=== PATIENT | male | born 1995 | race American Indian/Alaskan Native ===

== ENCOUNTER 2023-09-29 16:00 | Emergency (ER) | payer OTHER, SELFPAY ==
[2023-09-29 16:03] VITALS: BP 144/82; PULSE 86; RESP 18; TEMP 36.7; O2SAT 96; BMI 34.7
--- NOTE | 2023-09-29 16:22 | ED_ITS ---
HPI - Anxiety General Time Seen by Provider: 16:22 Date Seen: 09/29/23 Chief Complaint: Anxiety Stated Complaint: shaking, anxiety Time Seen by Provider: 09/29/23 16:22 Source: patient, RN notes reviewed and old records reviewed Mode of arrival: ambulatory Limitations: no limitations History of Present Illness HPI narrative: Patient is a very pleasant 28-year-old male with history of ADD, anxiety who comes to the emergency room with multiple worries. Ignacio states that he has had increased hunger over the past 2 weeks that he initially attributed to working out and increased activity. He has been trying hard to eat well and for the past few days the anxiety from this is been through the roof. He does agree that he has cut out pop and sugar in the past few days. When this started 2 weeks ago he thought perhaps he was dealing with some reflux as he has had a lot of burping. He use some Pepcid and this did seem to help some with what he describes as hunger. Because he has been eating healthy he noticed that his belly seemed to be getting bigger and he was not going to the bathroom as often and thus he took some MiraLax. This did seem to help. He also notes that he started stretching before he was going runny and this helped his abdominal discomfort quite a bit. The anxiety that Hudson has been experiencing has been ?through the roof? over the past few days. He initially attributed this to lack of sleep as he had an extended shift on SundaySeptember 25 and noticed that he was very anxious and felt scattered. This continued on September 26. On Sunday the he felt pretty well but then when out to supper with his colleagues. He notes that he did take ibuprofen as he had been experiencing a mild headache and his stomach was growling but he ate okay. When he got home he decided to go for run after eating out and when he got back from a 50 minute walk he felt lightheaded and scatter brains. He states this eventually subsided after drinking water. Unfortunately this morning he awoke with nausea and shaking. He did have an episode of nonbloody diarrhea. Note his last dose of MiraLax was earlier in the week. He agrees that sometimes it does occasionally her to urinate. He has not had cough cold or congestion. He states that he did go out to lunch today and while he was in the restaurant he was shaking uncontrollably. He was able to eat. He then went and sat in his car which was very warm and the shaking resolved. He denies use of tobacco alcohol or drugs. He is very worried about diabetes as his grandmother from that and his father also has diabetes. In regards to his anxiety Ignacio does not have anything prescribed. As a teenager he uses Zoloft but he does not think it helped very much. Patient denies chest pain shortness of breath or cough or sore throat. Related Data Home Medications ?Medication ?Instructions ?Recorded ?Confirmed No Known Home Medications 09/29/23 09/29/23 Allergies Allergy/AdvReac Type Severity Reaction Status Date / Time lactose Allergy Mild Verified 08/14/22 13:07 Review of Systems Status of ROS: Reports: 10 or more systems reviewed and unremarkable except as noted in History and below Const: Reports: fatigue; Denies: fever or chills Eyes: Denies: change in vision ENMT: Denies: throat pain, neck pain or nasal congestion Cardio: Reports: lightheadedness; Denies: chest pain, palpitations, swelling of feet/ankles or shortness of breath with exertion Resp: Denies: shortness of breath, cough or wheezing GI: Reports: abdominal pain, nausea and diarrhea; Denies: vomiting or blood in stool : Reports: painful urination; Denies: urinary frequency Musculo: Denies: back pain, neck pain or extremity pain Integ/Breast: Denies: rash Neuro: Reports: headache (Resolve); Denies: numbness in extremities Psych: Reports: anxiety Endo: Reports: fatigue Allergy/Immuno: Denies: wheezing PFSH PFS Medical History Enteritis ?K52.9 - Noninfective gastroenteritis and colitis, unspecified (ICD-10) Social History Smoking Status: Never smoker Do you use any of these nicotine containing products: None Second hand tobacco smoke exposure: No How often do you have a drink containing alcohol: never AUDIT-C Alcohol total score: 0 Non-prescribed substance use: denies use Little interest or pleasure in doing things: several days Feeling down, depressed, or hopeless: several days service: No Exam Narrative: Exam Narrative: Alert and oriented. Very detailed and mildly pressured speech. EOM is full. Face symmetrical. Oral cavity with moist mucous membranes. Heart with regular rate and rhythm. Lungs are clear. Abdomen shows some tenderness in the right upper quadrant. No rebound tenderness. No pulsating mass. Lower extremities without edema. Moving all extremities. Const: Vital Signs, click to edit/add: Vital Signs - 24 hr 09/29/23 16:03 Temperature 98.0 F Pulse Rate [Right Pulse Oximeter] 86 Respiratory Rate 18 Blood Pressure [Ri ght Upper Arm] 144/82 H Pulse Oximetry 96 Oxygen Delivery Me thod Room Air Documenting provider has reviewed patient's vital signs: yes Course Course ED Course: Differential diagnosis is quite broad. Over arching picture appears to be significant anxiety the patient does describe some lightheadedness after of walk/run, abdominal discomfort, recent activity and diet change. With this in mind will to do an EKG and troponin to check for arrhythmia, CBC comprehensive panel, CRP to rule out underlying electrolyte Sesay normality, elevated liver function tests, cholecystitis. Have also ordered ultrasound of the gallbladder. Have added TSH as well as vitamin-D and magnesium Vital Signs Vital signs: Initial Vital Signs Temperature 98.0 F 09/29/23 16:03 Temperature Source Temporal Artery Scan 09/29/23 16:03 Pulse Rate 86 09/29/23 16:03 Respiratory Rate 18 09/29/23 16:03 Blood Pressure 144/82 H 09/29/23 16:03 Blood Pressure Mean 102 09/29/23 16:03 Blood Pressure Position Sitting 09/29/23 16:03 Pulse Oximetry 96 09/29/23 16:03 Oxygen Delivery Method Room Air 09/29/23 16:03 Vital Signs Temperature 98.0 F 09/29/23 16:03 Pulse Rate 86 09/29/23 16:03 Respiratory Rate 18 09/29/23 16:03 Blood Pressure 144/82 H 09/29/23 16:03 Pulse Oximetry 96 09/29/23 16:03 Oxygen Delivery Method Room Air 09/29/23 16:03 Temperature 98.0 F 09/29/23 16:03 Pulse Rate 86 09/29/23 16:03 Respiratory Rate 18 09/29/23 16:03 Blood Pressure 144/82 H 09/29/23 16:03 Pulse Oximetry 96 09/29/23 16:03 Oxygen Delivery Method Room Air 09/29/23 16:03 MDM - Anxiety MDM Narrative Medical decision making narrative: 1. Anxiety 2. Medical Records Attestation: I reviewed the patient's medical records. Lab Data Attestation: I reviewed the patient's lab results. Labs: Lab Results 09/29/23 09/29/23 Range/Units 16:45 16:50 WBC 9.36 (4.50-11.00) K/uL RBC 5.01 (4.30-5.90) m/uL Hgb 15.4 (13.5-17.5) gm/dL Hct 44.8 (37.0-53.0) % MCV 89 (80-100) fL MCH 31 (26-34) pg MCHC 34 (32-36) gm/dL RDW Coeff of Kiesha 11.8 (11.5-15.5) % Plt Count 255 (140-440) K/uL Neut % (Auto) 79.9 H (42.0-72.0) % Lymph % (Auto) 15.2 L (20-44) % [place] % (Auto) 3.8 (0.0-11.0) % Eos % (Auto) 0.6 (0.0-7.0) % Baso % (Auto) 0.4 (0.0-3.0) % Neut # (Auto) 7.50 H (1.7-7.0) K/uL Lymph # (Auto) 1.40 (0.90-2.90) K/uL [place] # (Auto) 0.40 (0.00-0.90) K/UL Eos # (Auto) 0.06 (0.00-0.50) K/uL Baso # (Auto) 0.04 (0.00-0.30) K/uL Abs Immat Gran (auto) 0.01 (0.00-0.30) K/uL Imm/Tot Granulo (auto) 0.1 % Sodium 141 (135-149) mmol/L Potassium 4.1 (3.6-5.1) mmol/L Chloride 104 (96-114) mmol/L Carbon Dioxide 29 (20-32) mmol/L Anion Gap 8 (7-15) mEq/L BUN 8 (5-24) mg/dL Creatinine 0.7 (0.5-1.5) mg/dL Estimated Creat Clear 140.51 Estimated GFR 128 ml/min Glucose 112 (60-115) mg/dL Calcium 9.7 (8.4-10.6) mg/dL Magnesium 2.1 (1.5-2.6) mg/dL Total Bilirubin 0.7 (0.1-1.5) mg/dL AST 30 (12-35) U/L ALT 35 (4-50) U/L Alkaline Phosphatase 65 (40-150) U/L C-Reactive Protein 0.6 (0.5-1.0) mg/dL Total Protein 8.2 (6.0-8.3) g/dL Albumin 4.9 (3.3-5.0) g/dL Urine Color Yellow (Yellow) Urine Appearance Clear (Clear) Urine pH 7.0 (5.0-8.5) Ur Specific [place] 1.015 (1.000-1.030) Urine Protein Negative (Negative) Urine Glucose (UA) Negative (Negative) Urine Ketones Negative (Negative) Urine Blood Negative (Negative) Urine Nitrite Negative (Negative) Urine Bilirubin Negative (Negative) Urine Urobilinogen 0.2 (0.2-1.0) Ur Leukocyte Esterase Negative (Negative) Urine RBC 0-2 (0-2) Urine WBC 0-2 (0-5) Ur Squamous Epith Cells None (None-Few) Urine Bacteria None (None) Imaging Data US - abdomen: Attestation: I have reviewed the pertinent imaging results. Radiologist's impression: Pancreas: Almost completely obscured by bowel gas. Liver: Normal hepatic echogenicity and normal echotexture. No mass. Patent portal vein with normal directional flow. Gallbladder and bile ducts: The gallbladder is not fully distended. No stones or sludge. No sonographic Charles`s sign. No pericholecystic fluid. No intrahepatic or extrahepatic biliary ductal dilatation. The common bile duct measures 3 mm. RIGHT Kidney: Renal length: 12 cm Parenchyma: Normal thickness and normal echogenicity. Cyst: None Mass: None Calculi: None Urinary tract: Not dilated. Abdominal aorta: Normal caliber upper abdominal aorta. Ascites: None. IMPRESSION: The pancreas is almost completely obscured by bowel gas. Otherwise, normal right upper quadrant ultrasound. ECG Data Attestation: I personally reviewed and interpreted this ECG as follows: ECG interpretation date: 09/29/23 Interpretation: EKG by my read shows sinus rhythm at a rate of 89. No acute ST or T-wave changes noted. Discharge Plan Discharge Prescriptions: No Action No Known Home Medications Follow Up/Referrals: Provider,Not a Local [Primary Care Provider] -
[2023-09-29 16:55] LABS: Appearance Urine Clear (Clear); Bilirubin Urine Negative (Negative); Blood Urine Negative (Negative); Color Urine Yellow (Yellow); Glucose Urine Negative (Negative); Ketones Urine Negative (Negative); Leukocyte Esterase Urine Negative (Negative); Nitrite Urine Negative (Negative); Protein Urine Negative (Negative); Specific Gravity Urine 1.015 (1.000-1.030); Urobilinogen Urine 0.2 (0.2-1.0)
--- NOTE | 2023-09-29 16:55 | CRLHL7_ITS ---
For Patients: As a result of the Century Cures Act, medical imaging exams and procedure reports are released immediately into your electronic medical record. You may view this report before your referring provider. If you have questions, please contact your health care provider. INDICATION: Right upper quadrant discomfort COMPARISON: None. TECHNIQUE: [place]-scale and color Doppler ultrasound of the right upper quadrant. FINDINGS: Pancreas: Almost completely obscured by bowel gas. Liver: Normal hepatic echogenicity and normal echotexture. No mass. Patent portal vein with normal directional flow. Gallbladder and bile ducts: The gallbladder is not fully distended. No stones or sludge. No sonographic Charles`s sign. No pericholecystic fluid. No intrahepatic or extrahepatic biliary ductal dilatation. The common bile duct measures 3 mm. RIGHT Kidney: Renal length: 12 cm Parenchyma: Normal thickness and normal echogenicity. Cyst: None Mass: None Calculi: None Urinary tract: Not dilated. Abdominal aorta: Normal caliber upper abdominal aorta. Ascites: None. IMPRESSION: The pancreas is almost completely obscured by bowel gas. Otherwise, normal right upper quadrant ultrasound. Dictated by Darcy Ceballos MD @ 09/29/2023 5:54:19 PM (Electronically Signed)
[2023-09-29 16:58] LABS: Basophils Absolute Auto 0.04 K/uL (0.00-0.30); Basophils Percent Auto 0.4 % (0.0-3.0); Eosinophils Absolute Auto 0.06 K/uL (0.00-0.50); Eosinophils Percent Auto 0.6 % (0.0-7.0); Hematocrit 44.8 % (37.0-53.0); Hemoglobin* 15.4 gm/dL (13.5-17.5); Immature Granulocytes Abs Auto 0.01 K/uL (0.00-0.30); Immature Granulocytes Pct Auto 0.1 %; Lymphocytes Percent Auto 15.2 % (20-44); Mean Corpuscular HGB Conc 34 gm/dL (32-36); Mean Corpuscular Hemoglobin 31 pg (26-34); Mean Corpuscular Volume 89 fL (80-100); Monocytes Percent Auto 3.8 % (0.0-11.0); Neutrophils Percent Auto 79.9 % (42.0-72.0); Platelet Count* 255 K/uL (140-440); RDW Coefficient of Variation % 11.8 % (11.5-15.5); Red Blood Count 5.01 m/uL (4.30-5.90); White Blood Count* 9.36 K/uL (4.50-11.00)
[2023-09-29 16:59] LABS: Slide Review Reflex No
[2023-09-29 17:08] LABS: RBC Urine 0-2 (0-2); WBC Urine 0-2 (0-5)
[2023-09-29 17:10] LABS: Albumin* 4.9 g/dL (3.3-5.0); Chloride* 104 mmol/L (96-114)
[2023-09-29 17:11] LABS: Potassium* 4.1 mmol/L (3.6-5.1); Sodium* 141 mmol/L (135-149)
[2023-09-29 17:13] LABS: Alkaline Phosphatase* 65 U/L (40-150); Anion Gap 8 mEq/L (7-15); Aspartate Amino Transferase* 30 U/L (12-35); Bilirubin Total* 0.7 mg/dL (0.1-1.5); Carbon Dioxide* 29 mmol/L (20-32); Creatinine* 0.7 mg/dL (0.5-1.5); Est. Creatinine Clearance* 140.51; Estimated Glomerular Filt Rate 128 ml/min; Total Protein* 8.2 g/dL (6.0-8.3)
[2023-09-29 17:14] LABS: Alanine Aminotransferase* 35 U/L (4-50); Blood Urea Nitrogen* 8 mg/dL (5-24); Calcium* 9.7 mg/dL (8.4-10.6); Glucose* 112 mg/dL (60-115); Magnesium* 2.1 mg/dL (1.5-2.6)
[2023-09-29 17:16] LABS: C Reactive Protein* 0.6 mg/dL (0.5-1.0)
[2023-09-29 17:57] LABS: Vitamin D 25 Hydroxy* 18 ng/mL (30-80)
[2023-09-29 18:11] LABS: TSH With Reflex to FT4* 0.906 uIU/mL (0.270-4.200)
[2023-09-29 18:26] LABS: Lipase* 71 U/L (23-300)
== END 2023-09-29 18:58 | disposition home or self-care (01) ==
PROVIDERS: Emergency Provider Family Medicine
DX: F41.9 Anxiety disorder, unspecified (principal); R10.11 Right upper quadrant pain
CPT/HCPCS: 36415; 76705; 80053; 81001; 82306; 83690; 83735; 84443; 84484; 85025; 86140; 93005; 99284